=== PATIENT | female | born 1995 | race Caucasian/White ===

== ENCOUNTER 2017-04-26 14:27 | Emergency (ER) | payer OTHER ==
[~2017-04-26] VITALS: Ht 157.5 cm; Wt 77.0 kg
[2017-04-26 14:32] VITALS: TEMP 36.8; Ht 157.5 cm; Wt 77.0 kg
[2017-04-26] MEDS ORDERED: FERR324T PO (14:58)
[2017-04-26] MEDS ORDERED: MULT-506 PO (14:58)
[2017-04-26 15:36] LABS: URINE APPEARANCE CLEAR (CLEAR); URINE BILIRUBIN NEG (NEG); URINE COLOR YELLOW; URINE NITRITE NEG (NEG); URINE SPECIFIC GRAVITY 1.016 (1.000-1.030); UROBILINOGEN NEG (NEG)
[2017-04-26 15:37] LABS: MANUAL MICROSCOPIC REQUIRED? NO; REVIEW REQ? NO
[2017-04-26 15:38] LABS: BASO % 0.1 %; BASO ABS # 0.01 K/uL (0-0.2); COMPLETE YES; EOS % 0.1 %; HEMATOCRIT 37.7 % (37-47); IG% 0.3 %; LYMPH % 12.2 %; LYMPH ABS # 1.36 K/uL (1.2-3.4); MEAN CELL VOLUME 95.9 fL (80-100); MEAN CORPUSCULAR HEMOGLOBIN 34.6 pg (25-34); MEAN CORPUSCULAR HGB CONC 36.1 g/dl (32-36); MEAN PLATELET VOLUME 10.6 fL (7.4-10.4); NEUT % 81.3 %; PLATELET COUNT 210 K/uL (130-400); RED BLOOD COUNT 3.93 M/uL (4.2-5.4); WHITE BLOOD COUNT 11.18 K/uL (4.8-10.8)
--- NOTE | 2017-04-26 15:38 | EMERGENCY ROOM VISIT NOTE ---
History First contact with patient: 14:41 Chief Complaint: ABDOMINAL PAIN Stated Complaint: STOMACH CRAMPS/DISCHARGE Nursing Triage Summary: diffuse abd cramping with brownish vag dc and nausea History of Present Illness The patient is a 21 year old female who presents to the Emergency Room with complaints of lower abdominal/pelvic cramping and vaginal discharge for the past 3 days. She states that she was seen at [facility] yesterday and had a pelvic exam, was told that she was "borderline for BV infection" and was prescribed a vaginal cream for this. Patient states she has not started the cream. She states today that her cramping pain became much more severe, pain is now constant with intermittent sharp worsening pain, diffuse lower abdomen, worse on the right, feels better lying down, worse when she is up walking around, rates the pain as 7/10. She has tried ibuprofen for the pain, but states this does not help. She has associated intermittent chills and nausea with the pain , but denies any vomiting, diarrhea, urinary symptoms, or known fevers. Last menstrual period was one week ago and was normal, she denies concern for , denies concern for sexual transmitted infections. She denies any chest pain, shortness of breath, palpitations, dizziness or passing out, back pain, or rash. Review of Systems A complete 10 point review of systems was reviewed with the patient with pertinent positives and negatives as per history of present illness. All else were negative. Past Medical/Surgical History No significant past medical history Social History Smoking Status: Never Smoker Alcohol Use: none Drug Use: none Occupation Status: [employer] student Current/Historical Medications Scheduled Ferrous Gluconate (Iron Supplement), 324 MG PO DAILY Multivitamin (Multivitamin), 1 TAB PO DAILY Naproxen (Naprosyn), 500 MG PO BID Scheduled PRN Oxycodone/Acetaminophen 5MG/325MG (Percocet 5MG/325MG), 1 TAB PO Q4H PRN for Breakthrough Pain Allergies No known allergies Physical Exam Vital Signs Date Time Temp Pulse Resp B/P (MAP) Pulse Ox O2 Delivery O2 Flow Rate FiO2 04/26/17 19:03 99 16 130/85 99 04/26/17 18:29 99 130/85 99 Room Air 04/26/17 17:13 99 18 134/86 97 Room Air 04/26/17 16:08 103 18 142/78 99 Room Air 04/26/17 16:08 97 Room Air 04/26/17 14:32 36.8 82 16 138/91 98 Room Air Physical Exam CONSTITUTIONAL: No acute distress. Well appearing and well nourished. Alert and oriented X 4 with normal affect. HEENT: Normocephalic, atraumatic. Pupils equal, round and reactive to light, EOMI. TMs normal. Pharynx normal. NECK: Supple, full active range of motion without discomfort. RESPIRATORY: Clear to auscultation bilaterally with no wheezing, crackles, rhonchi or stridor. Equal expansion bilaterally. CARDIOVASCULAR: Regular rate and rhythm with no murmurs, rubs or gallops. Normal peripheral perfusion. No edema. GASTROINTESTINAL: Soft, nontender, nondistended. Bowel sounds present in all quadrants. PELVIC EXAM: VULVA: No ulcers, vesicles or atrophy. VAGINA: Small amount of reddish-brown discharge noted, no foul odor. No blood clots or active bleeding. CERVIX: Closed, pink, nontender, no cervical motion tenderness, no discharge. UTERUS: Normal size, nontender. ADNEXA: Right adnexal tenderness to palpation. Left adnexa no tenderness. A nurse was present as a scientific writer during the examination. MUSCULOSKELETAL: Full range of motion of all joints without discomfort. INTEGUMENTARY: No rash or other significant dermatologic conditions noted. NEUROLOGIC: Cranial nerves II-XII grossly intact. No focal neurologic deficits noted. Medical Decision & Procedures ER Provider Diagnostic Interpretation: PELVIC COMPLETE NON OB CLINICAL HISTORY: pelvic pain, eval ovarian cyst, torsion PAIN COMPARISON STUDY: None FINDINGS: The uterus measured 7.0 cm. The endometrial stripe measured 6 mm. The right ovary measured 4.7 cm with a 5 cm associated cyst. Normal vascular flow. The left ovary measured maximum dimension 2.6 cm. Normal vascular flow. There is no ultrasonographic evidence of ovarian torsion. It should be noted that ovarian torsion can be present with normal Doppler ultrasonographic findings. There was no evidence of pathologic free pelvic fluid. IMPRESSION: 1. 5 cm right ovarian cyst. 2. Otherwise negative pelvic ultrasound. 3. Normal vascular flow to both ovaries Laboratory Results 04/26/17 15:10 Red Blood Count 3.93, Mean Corpuscular Volume 95.9, Mean Corpuscular Hemoglobin 34.6, Mean Corpuscular Hemoglobin Concent 36.1, Mean Platelet Volume 10.6, Neutrophils (%) (Auto) 81.3, Lymphocytes (%) (Auto) 12.2, Monocytes (%) (Auto) 6.0, Eosinophils (%) (Auto) 0.1, Basophils (%) (Auto) 0.1, Neutrophils # (Auto) 9.10, Lymphocytes # (Auto) 1.36, Monocytes # (Auto) 0.67, Eosinophils # (Auto) 0.01, Basophils # (Auto) 0.01 04/26/17 15:10 Test 04/26/17 15:00 04/26/17 15:10 04/26/17 16:40 Urine Color YELLOW Urine Appearance CLEAR (CLEAR) Urine pH 7.0 (4.5-7.5) Urine Specific [place] 1.016 (1.000-1.030) Urine Protein NEG (NEG) Urine Glucose (UA) NEG (NEG) Urine Ketones TRACE (NEG) Urine Occult Blood 2+ (NEG) Urine Nitrite NEG (NEG) Urine Bilirubin NEG (NEG) Urine Urobilinogen NEG (NEG) Urine Leukocyte Esterase MODERATE (NEG) Urine WBC (Auto) 5-10 /hpf (0-5) Urine RBC (Auto) 0-4 /hpf (0-4) Urine Hyaline Casts (Auto) 0 /lpf (0-5) Urine Epithelial Cells (Auto) 10-20 /lpf (0-5) Urine Bacteria (Auto) 1+ (NEG) Urine Test NEG (NEG) White Blood Count 11.18 K/uL (4.8-10.8) Red Blood Count 3.93 M/uL (4.2-5.4) Hemoglobin 13.6 g/dL (12.0-16.0) Hematocrit 37.7 % (37-47) Mean Corpuscular Volume 95.9 fL (80-100) Mean Corpuscular Hemoglobin 34.6 pg (25-34) Mean Corpuscular Hemoglobin Concent 36.1 g/dl (32-36) Platelet Count 210 K/uL (130-400) Mean Platelet Volume 10.6 fL (7.4-10.4) Neutrophils (%) (Auto) 81.3 % Lymphocytes (%) (Auto) 12.2 % Monocytes (%) (Auto) 6.0 % Eosinophils (%) (Auto) 0.1 % Basophils (%) (Auto) 0.1 % Neutrophils # (Auto) 9.10 K/uL (1.4-6.5) Lymphocytes # (Auto) 1.36 K/uL (1.2-3.4) Monocytes # (Auto) 0.67 K/uL (0.11-0.59) Eosinophils # (Auto) 0.01 K/uL (0-0.5) Basophils # (Auto) 0.01 K/uL (0-0.2) RDW Standard Deviation 42.6 fL (36.4-46.3) RDW Coefficient of Variation 12.2 % (11.5-14.5) Immature Granulocyte % (Auto) 0.3 % Immature Granulocyte # (Auto) 0.03 K/uL (0.00-0.02) Anion Gap 8.0 mmol/L (3-11) Est Creatinine Clear Calc Drug Dose 95.8 ml/min Estimated GFR () 106.7 Estimated GFR (Non- 92.0 BUN/Creatinine Ratio 14.4 (10-20) Calcium Level 9.3 mg/dl (8.5-10.1) Total Bilirubin 0.4 mg/dl (0.2-1) Aspartate Amino Transf (AST/SGOT) 22 U/L (15-37) Alanine Aminotransferase (ALT/SGPT) 23 U/L (12-78) Alkaline Phosphatase 70 U/L (45-117) Total Protein 7.8 gm/dl (6.4-8.2) Albumin 4.1 gm/dl (3.4-5.0) Globulin 3.7 gm/dl (2.5-4.0) Albumin/Globulin Ratio 1.1 (0.9-2) Date/Time Source Procedure Growth Status 04/26/17 16:40 Vaginal Drainage Trichomonas Preparation - Final Complete Medications Administered Medications (Trade) Dose Ordered Sig/Jasper Route Start Time Stop Time Status Last Admin Dose Admin Ketorolac Tromethamine (Toradol Inj) 15 mg NOW STAT IV 04/26/17 18:09 04/26/17 18:10 DC 04/26/17 18:29 15 MG Medical Decision CC: Patient presenting with complaint of pelvic pain, vaginal discharge Interpretation of Labs: Mild leukocytosis, no anemia, no significant electrolyte abnormalities, normal renal function, normal liver enzymes. UA is more consistent with contaminant an infection, culture is pending. Differential Diagnosis: Includes, but not limited to bacterial vaginosis, vaginal yeast infection, PID, sexual transmitted infection, ovarian cyst, ovarian torsion, appendicitis, UTI, pyelonephritis, among others. Medication Reconciliation: I attest that I have personally reviewed the patient' s current medication list. Vital signs review: I reviewed the patient's vital signs and interpret them as follows: T: Afebrile; BP: Hypertensive; HR: Within normal limits; RR: Within normal limits; Pulse Ox: Within normal limits on room air. Summary: Patient was evaluated at bedside, history and physical exam performed. Patient is alert and oriented, in no acute distress and nontoxic appearing, resting calmly in the stretcher. Patient is diffusely tender in the lower abdomen, most tender just right of midline. No McBurney's point tenderness, negative Rovsing, and no rebound tenderness or guarding. No CVA tenderness. Orders were placed at bedside for labs, UA and urine , vaginal/ cervical cultures, pelvic ultrasound to evaluate for ovarian torsion. Patient discussed with Dr. Painter, who agrees with my assessment and plan. Labs reviewed as above, no significant abnormalities. Pelvic exam reveals a small amount of reddish-brown discharge, no cervical motion tenderness or significant pain to suspect PID. Patient does have considerable right adnexal tenderness, the uterus and left adnexa are nontender. Ultrasound imaging shows a large 5 cm cyst on the right ovary, normal flow documented to both ovaries. Patient reassessed multiple times throughout ED stay, she reports that her pain is slightly improved. I spoke on the phone with Dr. Johnson, INFORMATION SERVICES ASSISTANT, regarding the patient's right ovarian cyst and concern for intermittent torsion. She states with documented flow on the ultrasound and patient's steady level of pain, there is no indication for surgery at this point. She recommended discharge to home with pain medications and very strict return precautions, and to have her call the office in the morning to schedule a clinic follow-up appointment for possible elective drainage of the cyst. The patient was given IV Toradol for her pain, with good improvement. I discussed all results with the patient and plan for discharge, with plan to follow up with the [facility] office tomorrow. I also discussed return criteria should her symptoms worsen in any way, she verbalized understanding. Patient was discharged home in stable condition and ambulatory Medication Reconcilliation Current Medication List: was personally reviewed by me Blood Pressure Screening Patient's blood pressure: Elevated blood pressure Blood pressure disposition: Elevated BP felt to be situational Consults Time Called: 5:58 PM Consulting Physician: Dr. Johnson (INFORMATION SERVICES ASSISTANT) Returned Call: 6:02 PM Impression Primary Impression: Right ovarian cyst Departure Information Dispostion Home / Self-Care Condition GOOD Prescriptions Oxycodone/Acetaminophen 5MG/325MG (PERCOCET 5MG/325MG) Tab 1 TAB PO Q4H Y for Breakthrough Pain, #15 TAB For Initial Treatment Prov: Nerissa Gonzales CRNP 04/26/17 Naproxen (Naprosyn) 500 Mg Tab 500 MG PO BID for Pain for 10 Days, #20 TAB Prov: Nerissa Gonzales CRNP 04/26/17 Referrals [facility] (PCP) Zoraida Johnson MD Patient Instructions ED Cyst Ovarian, [facility] Additional Instructions You have been treated in the Emergency Department your Abdominal Pain. Laboratory results and imaging studies have ruled out any emergent causes for your abdominal pain which would warrant admission or surgery. Your ultrasound today shows that you have a 5 cm cyst on your right ovary. You have been prescribed Percocet to be used for pain control. This is a narcotic medication. You cannot drive or consume alcohol while on this medicine. This medicine should only be used for severe pain that cannot be controlled with [id number] pain medicines. You have also been prescribed naproxen, one tablet twice a day as needed for pain. You may try applying a heating pad to your abdomen for discomfort. Drink plenty of water and stay well hydrated. You should call the gynecology office tomorrow morning to set up an appointment for follow-up. Please return to the emergency department immediately if your pain becomes suddenly or significantly worse, if you develop fever/chills, severe nausea/ vomiting, severe dizziness or passing out, heavy vaginal bleeding, or any other concerns.
[2017-04-26 15:47] LABS: BUN/CREATININE RATIO 14.4 (10-20); CALCIUM 9.3 mg/dl (8.5-10.1); CREATININE 0.9 mg/dl (0.60-1.20); POTASSIUM 3.5 mmol/L (3.5-5.1)
[2017-04-26 15:50] LABS: ALB/GLOB RATIO 1.1 (0.9-2)
[2017-04-26 16:08] VITALS: O2SAT 97
--- NOTE | 2017-04-26 16:29 | DIAGNOSTIC IMAGING REPORT ---
PELVIC COMPLETE NON OB CLINICAL HISTORY: pelvic pain, eval ovarian cyst, torsion PAIN COMPARISON STUDY: None FINDINGS: The uterus measured 7.0 cm. The endometrial stripe measured 6 mm. The right ovary measured 4.7 cm with a 5 cm associated cyst. Normal vascular flow. The left ovary measured maximum dimension 2.6 cm. Normal vascular flow. There is no ultrasonographic evidence of ovarian torsion. It should be noted that ovarian torsion can be present with normal Doppler ultrasonographic findings. There was no evidence of pathologic free pelvic fluid. IMPRESSION: 1. 5 cm right ovarian cyst. 2. Otherwise negative pelvic ultrasound. 3. Normal vascular flow to both ovaries The above report was generated using voice recognition software. It may contain grammatical, syntax or spelling errors. Electronically signed by: Angel Ch M.D. 04/26/2017 4:28 PM Dictated Date/Time: 04/26/2017 4:26 PM
[2017-04-26] MEDS ORDERED: KETOROLAC TROMETHAMINE 30 MG/ML VIAL IV STA (18:09)
[2017-04-26] MEDS ORDERED: OXYC-57 PO (18:16)
[2017-04-26] MEDS ORDERED: NAPR-1169 PO (18:16)
[2017-04-26 19:03] VITALS: BP 130/85; PULSE 99; O2SAT 99
--- NOTE | 2017-04-28 12:58 | Pharmacy Progress Note ---
ED Pharmacist Culture FollowUp Date of Service: Apr 28, 2017. Called patient regarding E. coli urine culture. Prescription for keflex 500mg QID X 10 days called to [facility] at the patient's request. Case discussed with Dr. Painter, who is the prescribing provider.
[2017-04-29 01:52] LABS: CHLAMYDIA TRACH RNA*** NOT DETECTED (NOT DETECTED); GC (NEIS GONORRHOEAE)RNA** NOT DETECTED (NOT DETECTED)
== END 2017-04-26 19:00 | disposition home or self-care (01) ==
LOC: C.EDB 14:30 → C.EDA 19:00
DX: N83.201 Unspecified ovarian cyst, right side (principal)

== ENCOUNTER 2017-06-10 13:20 | Emergency (ER) | payer OTHER ==
[~2017-06-10] VITALS: Ht 154.9 cm; Wt 76.0 kg
[~2017-06-10 13:20] MED LIST: FERR324T PO; MULT-506 PO; OXYC-57 PO
[2017-06-10 13:23] VITALS: TEMP 36.7; Ht 154.9 cm; Wt 76.0 kg
[2017-06-10 14:07] LABS: PTT PATIENT 26.6 SECONDS (21.0-31.0)
--- NOTE | 2017-06-10 14:47 | DIAGNOSTIC IMAGING REPORT ---
BILATERAL LOWER EXTREMITY VENOUS DOPPLER CLINICAL HISTORY: bilateral lower leg pain/patient on control COMPARISON STUDY: No previous studies for comparison. TECHNIQUE: Sonography of the deep venous system of the lateral lower extremities was performed. Compression and augmentation were evaluated. FINDINGS: The bilateral common femoral, superficial femoral and popliteal veins were compressible. Augmentation was normal. Flow was shown within the deep calf vessels. IMPRESSION: No evidence of deep venous thrombus within the bilateral lower extremities. Electronically signed by: Abe Nelson M.D. 06/10/2017 2:46 PM Dictated Date/Time: 06/10/2017 2:45 PM
--- NOTE | 2017-06-10 15:01 | EMERGENCY ROOM VISIT NOTE ---
History First contact with patient: 13:26 Chief Complaint: LEG PAIN,LEG INJURY Stated Complaint: BILAT CALF PAIN, UTI, DIZZINES History of Present Illness The patient is a 21 year old female who presents to the Emergency Room with multiple complaints. The patient's first complaint is that she was recently treated for a UTI and was treated with amoxicillin. She finished it yesterday but last evening she still has urinary frequency but denies any dysuria or hematuria or urgency. The patient denies any abdominal pain. The patient also states that she recently started control pills 3 days ago. Last evening she started with pain in both her cavities. The patient states that she does not work out and that there is no reason for her to have pain in her calves. She denies any increased walking at school. The patient denies any chest pain or shortness of breath. The patient denies any tobacco use. Review of Systems 10 system review was performed and was negative unless stated otherwise history of present illness. Past Medical/Surgical History Hypertension, ovarian cyst, breast reduction surgery Social History Smoking Status: Never Smoker Alcohol Use: none Drug Use: none Occupation Status: [employer] student Current/Historical Medications Scheduled Multivitamin (Multivitamin), 1 TAB PO DAILY Physical Exam Vital Signs Date Time Temp Pulse Resp B/P (MAP) Pulse Ox O2 Delivery O2 Flow Rate FiO2 06/10/17 13:23 36.7 96 16 136/89 97 Physical Exam GENERAL: 21-year-old female appears in no acute distress. MENTAL Status: Patient is alert and oriented 3. She appears somewhat anxious. NECK: Supple, no lymphadenopathy noted. No carotid bruits noted. LUNGS: Clear auscultation without wheezes rales or rhonchi. CARDIAC: Regular rate and rhythm without murmur. Pulses is full and equal throughout.. ABDOMEN: Positive bowel sounds all 4 quadrants. Soft, nontender to palpation without organomegaly or masses. EXTREMITIES: No cyanosis or edema noted. No erythema . Slight tenderness palpation over both posterior calves. No palpable cords. Negative Homans bilaterally. Medical Decision & Procedures ER Provider Diagnostic Interpretation: BILATERAL LOWER EXTREMITY VENOUS DOPPLER CLINICAL HISTORY: bilateral lower leg pain/patient on control COMPARISON STUDY: No previous studies for comparison. TECHNIQUE: Sonography of the deep venous system of the lateral lower extremities was performed. Compression and augmentation were evaluated. FINDINGS: The bilateral common femoral, superficial femoral and popliteal veins were compressible. Augmentation was normal. Flow was shown within the deep calf vessels. IMPRESSION: No evidence of deep venous thrombus within the bilateral lower extremities. Electronically signed by: Abe Nelson M.D. 06/10/2017 2:46 PM Dictated Date/Time: 06/10/2017 2:45 PM Laboratory Results Test 06/10/17 13:41 06/10/17 13:45 Prothrombin Time 10.1 SECONDS (9.0-12.0) Prothromb Time International Ratio 1.0 (0.9-1.1) Activated Partial Thromboplast Time 26.6 SECONDS (21.0-31.0) Partial Thromboplastin Ratio 1.0 Urine Color YELLOW Urine Appearance CLEAR (CLEAR) Urine pH 6.5 (4.5-7.5) Urine Specific [place] 1.016 (1.000-1.030) Urine Protein NEG (NEG) Urine Glucose (UA) NEG (NEG) Urine Ketones NEG (NEG) Urine Occult Blood 2+ (NEG) Urine Nitrite NEG (NEG) Urine Bilirubin NEG (NEG) Urine Urobilinogen NEG (NEG) Urine Leukocyte Esterase SMALL (NEG) Urine WBC (Auto) 1-5 /hpf (0-5) Urine RBC (Auto) 0-4 /hpf (0-4) Urine Hyaline Casts (Auto) 0 /lpf (0-5) Urine Epithelial Cells (Auto) >30 /lpf (0-5) Urine Bacteria (Auto) NEG (NEG) ED Course The patient was evaluated. The patient's EMR medication list were reviewed. Coags were ordered. Urinalysis was ordered. Urine revealed a trace of leukocytes and some blood. No bacteria was noted. This will be sent for culture. Bilateral venous Dopplers of the lower extremities was ordered interpreted by the radiologist as above without any evidence of DVT. Medical Decision Differential diagnosis include DVT, superficial phlebitis, muscle cramps Differential diagnosis include UTI, pyelonephritis, interstitial cystitis [place] Drug Monitoring Program Search Results: patient reviewed within database Medication Reconcilliation Current Medication List: was personally reviewed by me Blood Pressure Screening Patient's blood pressure: Normal blood pressure Impression Primary Impression: Urinary frequency Additional Impression: Bilateral leg pain Departure Information Dispostion Home / Self-Care Condition GOOD Referrals No Doctor, Assigned (PCP) Forms HOME CARE DOCUMENTATION FORM, IMPORTANT VISIT INFORMATION Patient Instructions [facility] Additional Instructions Push fluids. Take Tylenol and/or ibuprofen as needed for pain. Call in 36 hours for urine culture results. If symptoms persist or worsen, follow-up with [facility]. Problem Qualifiers
[2017-06-10 15:08] VITALS: BP 128/80; PULSE 85; O2SAT 98
== END 2017-06-10 15:09 | disposition home or self-care (01) ==
LOC: C.EDB 13:24 → C.EDD 15:09
DX: R35.0 Frequency of micturition (principal); M79.606 Pain in leg, unspecified; I10 Essential (primary) hypertension; Z87.440 Personal history of urinary (tract) infections

== ENCOUNTER 2023-11-29 05:36 | Inpatient (IN) ==
--- NOTE | 2023-11-18 14:33 | Anesthesiology Consultation ---
Date of Service November 18, 2023 Assessment & Plan (1) Encounter for pre-operative examination: - Per machine tool dresser on 11/18/23: No known infectious disease contacts, current infectious disease symptoms in past 10 days or COVID positive test result in the past 30 days. Chart Review Chart Review: entry table operator initiated History Surgery Operation Date: 11/29/23 07:30 Proposed Procedures p Section in LD (Delivery Baby through Abdominal Incision) - Domi Perez MD, FACOG Height/Weight Height: 5 ft 2 in Weight: 90.265 kg Allergies Allergy/AdvReac Type Severity Reaction Status Date / Time No Known Allergies Allergy Verified 11/18/23 14:04 Medications Home Medications Medication Instructions Recorded Confirmed Last Taken docosahexaenoic acid 200 mg 1 mg PO DAILY 03/02/23 11/18/23 10/11/23 capsule ( DHA) aspirin 81 mg chewable tablet 81 mg PO DAILY 06/30/23 11/18/23 10/11/23 ferrous sulfate 27 mg iron tablet 27 mg PO DAILY 11/18/23 11/18/23 Unknown Past Medical History Medical History (Updated 11/18/23 @ 14:32 by Katharine Dai PA-C) Anemia Bicornuate uterus History of chicken pox Hx of pre-eclampsia in prior , currently with 1st > none this time IUGR (intrauterine growth restriction) affecting care of mother with first 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 Family History Family History Aunt Breast cancer Grandmother (Paternal) Myocardial infarction Grandfather (Paternal) Prostate cancer Denies family history of Ovarian cancer Colorectal cancer Past Surgical History Surgical History S/P bilateral breast reduction S/P section 07/24/21- 30 weeks in [facility] [place] S/P wisdom tooth extraction Social History Smoking Status: Never smoker Do You Dip or Chew Tobacco: No Hx Alcohol Use: Yes alcohol intake frequency: holidays/special occasions only Alcohol Intake Frequency Comment: none during Hx Substance Use: No substance use type: does not use Lab Results Anesthesia Preop Results Results Anesthesia Widget: WBC 9.52 K/ul (4.8-10.8) 10/12/23 Hgb 10.5 g/dl (12.0-16.0) L 10/12/23 Hct 29.3 % (37.0-47.0) L 10/12/23 Plt 162 K/uL (130-400) 10/12/23 Na 137 mmol/L (136-145) 10/12/23 K 3.9 mmol/L (3.5-5.1) 10/12/23 Cl 106 mmol/L (98-107) 10/12/23 CO2 23 mmol/L (21-32) 10/12/23 BUN 8 mg/dl (6-23) 10/12/23 Creat 0.60 mg/dl (0.6-1.2) 10/12/23 Glucose Level 84 mg/dl (70-99(Fasting)) 10/12/23 Urine Color Yellow 09/19/23 Urine Appearance Cloudy (Clear) A 09/19/23 Urine pH 6.5 (4.5-7.5) 09/19/23 Urine Specific [place] 1.020 (1.000-1.030) 09/19/23 Urine Protein Trace (Negative) H 09/19/23 Urine Glucose (UA) Negative (Negative) 09/19/23 Urine Ketones Negative (Negative) 09/19/23 Urine Blood Negative (Negative) 09/19/23 Urine Nitrite Negative (Negative) 09/19/23 Urine Bilirubin Negative (Negative) 09/19/23 Urine Urobilinogen Negative (Negative) 09/19/23 Urine Leukocyte Esterase Trace (Negative) H 09/19/23 Urine WBC (Auto) 11-20 /hpf (0-5) H 09/19/23 Urine RBC (Auto) 0-2 /hpf (0-2) 09/19/23 Urine Hyaline Casts (Auto) 3-5 /lpf (0-2) H 09/19/23 Urine Epithelial Cells (Auto) 6-10 /hpf (0-2) H 09/19/23 Urine Bacteria (Auto) 2+ (None Seen) H 09/19/23
--- NOTE | 2023-11-28 17:50 | History & Physical Report ---
Date of Service November 28, 2023 Assessment & Plan (1) Previous delivery affecting , antepartum: Plan: IUP at 38 weeks with IUGR fetus and breech presentation with uterus didelphys for repeat LTCS the procedure and it's risks were reviewed with patient and her and all questions answered to their satisfaction. History of Present Illness Primary Care Provider: Trey Starr DO Patient is a 28 yo EDC 12/11/23 who presents at 38 2/7 weeks for repeat LTCS because of breech presentation and IUGR fetus. testing has been reassuring. Prior LTCS was done at 30 weeks because of Pre-eclampsia with severe features and breech presentation. 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 GBS- negative Allergies Allergy/AdvReac Type Severity Reaction Status Date / Time No Known Allergies Allergy Verified 11/28/23 10:36 Home Medications Medication Instructions Recorded Confirmed Type docosahexaenoic acid 200 mg 1 mg PO DAILY 03/02/23 11/28/23 History capsule ( DHA) aspirin 81 mg chewable tablet 81 mg PO DAILY 06/30/23 11/28/23 History ferrous sulfate 27 mg iron tablet 27 mg PO DAILY 11/18/23 11/28/23 History Patient History Medical History Anemia Bicornuate uterus History of chicken pox Hx of pre-eclampsia in prior , currently with 1st > none this time IUGR (intrauterine growth restriction) affecting care of mother with first 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 Surgical History S/P bilateral breast reduction S/P section 07/24/21- 30 weeks in [facility] [place] S/P wisdom tooth extraction Family History Aunt Breast cancer Grandmother (Paternal) Myocardial infarction Grandfather (Paternal) Prostate cancer Denies family history of Ovarian cancer Colorectal cancer Social History Smoking Status: Never smoker Second Hand Exposure: No; Do You Dip or Chew Tobacco: No; Hx Alcohol Use: Yes Hx Substance Use: No Preferred Language: Senegalese Communication Ability: Effective Residential Fee Appraiser Required: No Beliefs That Will Affect Care: None marital status: marital status details: [place] (28) [phone] Current Living Situation: Spouse Current Living Situation Comment: house with , son and dog current occupational status: unemployed current occupation: homemaker Feels Safe at Home: Yes Assistive Devices: None Review of Systems All systems reviewed & are unremarkable except as noted in HPI & below Physical Exam Constitutional: WD/WN, vitals as above Respiratory: normal respiratory effort, lungs clear to auscultation Cardiovascular: RRR, no murmur, no edema Psychiatric: A+Ox3, euthymic affect Genitourinary: OB Exam Abdomen: + fundal height (term) and + breech OB Exam Monitor Tracing: + external FHT monitor used, + external uterine monitor used, + category I and + normal FHT variability Coding Level of Care Code None Diagnoses Previous delivery affecting , antepartum O34.976
[2023-11-29] MEDS ORDERED: SODIUM CHLORIDE 0.9% 250 ML IV PRN (05:39)
[2023-11-29] MEDS: LACTATED RINGER'S 1,000 ML IV SCH (06:04)
[2023-11-29 06:27] LABS: Basophils # (auto) 0.03 K/uL (0.00-0.20); Basophils % (auto) 0.3 %; Eosinophils % (auto) 1.2 %; Hematocrit (blood only) 34.8 % (37.0-47.0); Hemoglobin 12.6 g/dl (12.0-16.0); Immature Granulocytes # (auto) 0.04 K/uL (0.01-0.20); Immature Granulocytes % (auto) 0.5 %; Lymphocytes # (auto) 2.11 K/uL (1.20-3.40); Lymphocytes % (auto) 24.4 %; Mean Corpuscular Hgb Conc 36.2 g/dL (32.0-36.0); Mean Corpuscular Volume 96.7 fL (80.0-100.0); Mean Platelet Volume 10.8 fL (9.4-12.4); Monocytes % (auto) 8.1 %; Neutrophils # (auto) 5.67 K/uL (1.40-6.50); Neutrophils % (auto) 65.5 %; Platelet Count 189 K/uL (130-400); RDW Coefficient of Variation 12.6 % (11.5-14.5); RDW Standard Deviation 44.4 fL (36.4-46.3); White Blood Count 8.65 K/ul (4.8-10.8)
[2023-11-29] MEDS ORDERED: DEXAMETHASONE SOD INJ 4 MG/ML VIAL ONE (06:57)
[2023-11-29] MEDS ORDERED: MoRPHine SULFATE PF 1 MG/ML 10 ML AMP/VIAL ONE (06:57)
[2023-11-29] MEDS ORDERED: OXYTOCIN 10 UNITS/ML VIAL ONE (06:57)
[2023-11-29] MEDS ORDERED: KETOROLAC 30 MG/ML VIAL ONE (06:57)
[2023-11-29] MEDS ORDERED: ONDANSETRON INJ 2 MG/ML 2 ML VIAL ONE (06:57)
[2023-11-29] MEDS ORDERED: PHENYLEPHRINE 100MCG/ML 10ML SYR IV ONE (06:57)
[2023-11-29] MEDS ORDERED: fentaNYL citrate PF 100 MCG/2 ML VIAL ONE (06:57)
--- NOTE | 2023-11-29 07:10 | History & Physical Bridge Note ---
Date of Service November 29, 2023 History & Physical Bridge Note I have examined the patient, reviewed the History & Physical and in the interval since the performance of the History & Physical I have noted the following changes of clinical significance: no changes noted
[2023-11-29] MEDS: CITRIC ACID/SODIUM CITRATE 15 ML UDC PO SCH (07:38)
[2023-11-29] MEDS: ceFAZolin 2000MG 2,000 MG/15 ML SYR IV SCH (07:40)
[2023-11-29] MEDS ORDERED: HYDROCORTISONE ACETATE 25 MG SUPP PR PRN (09:10)
[2023-11-29] MEDS ORDERED: diphenhydrAMINE 50 MG/ML VIAL IV PRN ×2 (09:10→09:20)
[2023-11-29] MEDS ORDERED: ONDANSETRON INJ 2 MG/ML 2 ML VIAL IV PRN ×2 (09:10→09:20)
[2023-11-29] MEDS ORDERED: BENZOCAINE 20% SPRY 85 APPLN/85 GM CAN EXT PRN (09:10)
[2023-11-29] MEDS ORDERED: diphenhydrAMINE Capsule 25 MG CAP PO PRN (09:10)
[2023-11-29] MEDS ORDERED: MEPERIDINE HCL 50 MG/ML CARP IV PRN (09:10)
[2023-11-29] MEDS ORDERED: PROMETHAZINE HCL 25 MG in SODIUM CHLORIDE 0.9% 50 ML IV PRN (09:10)
[2023-11-29] MEDS ORDERED: MAGNESIUM HYDROXIDE SUSP 30 ML UDC PO PRN (09:10)
[2023-11-29] MEDS ORDERED: KETOROLAC 30 MG/ML VIAL IV PRN (09:10)
[2023-11-29] MEDS ORDERED: ACETAMINOPHEN 325 MG TAB PO PRN (09:10)
[2023-11-29] MEDS ORDERED: SENNA 8.6 MG TAB PO PRN (09:10)
[2023-11-29] MEDS ORDERED: LACTATED RINGER'S 1,000 ML IV SCH (09:15)
[2023-11-29] MEDS ORDERED: NALBUPHINE HCL 5 MG in SYRINGE 0 ML IV PRN (09:20)
[2023-11-29] MEDS ORDERED: ePHEDrine sulfate 50 MG/ML AMP IV PRN (09:20)
[2023-11-29] MEDS ORDERED: NALOXONE HCL 0.08 MG in SYRINGE 1.8 ML IV PRN (09:20)
[2023-11-29] MEDS ORDERED: HYDROmorphone INJ 0.5 MG/0.5 ML SYR IV PRN (09:20)
[2023-11-29] MEDS ORDERED: NALOXONE HCL 0.4 MG/1 ML VIAL/CARP IV PRN (09:20)
[2023-11-29] MEDS ORDERED: NALOXONE HCL 1 MG in SODIUM CHLORIDE 0.9% 1,000 ML IV PRN (09:20)
[2023-11-29] MEDS ORDERED: LACTATED RINGER'S 500 ML IV PRN (09:20)
[2023-11-29] MEDS ORDERED: PROMETHAZINE HCL 6.25 MG in SODIUM CHLORIDE 0.9% 50 ML IV PRN (09:20)
--- NOTE | 2023-11-29 09:21 | Anesthesiology Progress Note ---
Date of Service November 29, 2023 Anesthesia Post Procedure Vital Signs Vital Signs: Temp Pulse Resp BP Pulse Ox 11/29/23 09:16 65 100 11/29/23 09:15 73 128/76 11/29/23 07:00 36.8 C 65 139/94 11/29/23 06:09 70 137/90 11/29/23 05:54 36.7 C 18 Transfer of Care Handoff Completed per policy Notes Mental Status: alert / awake / arousable and participated in evaluation Patient Amnestic to Procedure: No Nausea / Vomiting: adequately controlled Pain: adequately controlled Airway Patency, RR, SpO2: stable & adequate BP & HR: stable & adequate Hydration State: stable & adequate Neuraxial Anesthesia: was administered and sensory block is resolving Anesthetic Complications: no major complications apparent and Pt Satisfied with anesthetic care
--- NOTE | 2023-11-29 09:22 | Post Operative Brief Note ---
Immediate Post Op Note Date of Surgery November 29, 2023 Pre & Post Diagnosis Operation Date: 11/29/23 07:30 Pre-Op Diagnosis: History of Section Post-Op Diagnosis: History of Section I identified the patient and participated in the time-out.: Yes Procedure Operation Date: 11/29/23 07:30 Actual Procedures p Section(Bilateral) - Domi Perez MD, FACOG Surgeon Domi Perez MD, FACOG Social Worker Masters Zoraida Johnson Quantitative Blood Loss (QBL) 587 Findings Consistent with Post-Op Diagnosis uterus didelphys with in gravid right uterus. bilateral ovaries and tubes are normal. left uterus is normal size Specimens Specimen Description: A. Cord Blood B. Placenta - Hold Anesthesia Type Spinal Complications none Disposition Accompanied Patient To Recovery: Yes
[2023-11-29] MEDS ORDERED: NO NARCOTICS OR SEDATIVES SCH (09:30)
[2023-11-29] MEDS ORDERED: DC INTRASPINAL MORPHINE SCH (09:30)
--- NOTE | 2023-11-29 09:54 | Operative Report ---
Post Operative Report Pre & Post Diagnosis Operation Date: 11/29/23 07:30 Pre-Op Diagnosis: History of Section Post-Op Diagnosis: History of Section I identified the patient and participated in the time-out.: Yes Procedure Operation Date: 11/29/23 07:30 Actual Procedures p Section- Delivery of live male child at 0828. (Bilateral) - Domi Perez MD, FACOG Surgeon Domi Perez MD, FACOG Bearing Maker Zoraida Johnson Quantitative Blood Loss (QBL) 587 Findings Consistent with Post-Op Diagnosis The was in the right uterus. That uterus was gravid and consistent with a full-term in size the right ovary and fallopian tube were also grossly normal. The left uterus was of normal size with a normal left ovary and tube. Specimens Placenta to hold Drains Garcia catheter to straight drainage clear urine at the end of the case Anesthesia Type Spinal Complications none Disposition Accompanied Patient To Recovery: Yes Indications Prior section at 30 weeks for HELLP syndrome and breech presentation 38 weeks gestation with IUGR- current Breech presentation Uterus didelphys Description of Procedure The patient received adequate subarachnoid block she was prepped and draped in usual sterile fashion. A low transverse skin incision was made through her prior car scar and carried to the fascia with the same scalpel. The fascial incision was then extended with Han scissors and the underlying rectus muscle bluntly sharply dissected off of the overlying fascia. The peritoneum was entered bluntly and the rectus muscles were then taken down on the midline with sharp and blunt dissection. The bladder was then taken down off the anterior surface of the right uterus. It was placed behind the bladder blade. A low transverse incision was made on the uterus and extended in a cephalad and caudad stretching process. Membranes were ruptured for clear fluid. It was delivered from the breech presentation with moderate fundal pressure. After the buttocks were delivered the rest of the infant delivered easily. Cord was clamped and cut and the male infant was handed off to Dr. Perez and crew from the nursery. He was then vigorous and crying and moving all 4 limbs. The placenta was then extracted manually. Uterine cavity was then explored and found to be free of any placental tissue or membranes. The uterus was then closed in 2 layers with a running locking imbricating fashion with 0 Monocryl. Some bleeding along the lower edge of the uterine incision was secured with the Bovie. This point hemostasis was excellent, and the uterus was placed back inside the abdominal cavity. Incidentally the left uterus was identified with a normal ovary and tube. The uterus was normal size. The uterine incision was examined once more and continue to have excellent hemostasis. The gutters were explored and found be free of any clots or fluid. The rectus muscle were then brought together on the midline with individual stitches of 0 Monocryl. The fascia was closed in a running fashion with 0 Vicryl. After irrigating the subcutaneous layer, the skin edges were reapproximated in a subcuticular fashion with 4-0 Vicryl. Patient tolerated the procedure well was stable upon arrival he in labor and delivery. I attest to the content of the Intraoperative Record and any orders documented therein. Any exceptions are noted below. OB Procedure Charges 39309
[2023-11-29] MEDS: OXYTOCIN 20 UNITS/LR 1,002 ML IV SCH (10:11)
[2023-11-29] MEDS: SIMETHICONE 80 MG CHEW PO SCH (13:38)
[2023-11-29] MEDS: SODIUM CHLORIDE 0.9% 1,000 ML IV SCH (15:06)
[2023-11-29] MEDS: MoRPHine SULFATE PF 1 MG/ML 10 ML AMP/VIAL INT SPINAL ONE (15:06)
[2023-11-29] MEDS: DIPHTHER/TETAN/PERTUS Vaccine (Tdap, Adol/Adult) 0.5mL IM ONE (15:09)
[2023-11-29] MEDS: DOCUSATE SODIUM 100 MG CAP PO SCH (20:50)
[2023-11-30] MEDS: KETOROLAC 30 MG/ML VIAL IV PRN (00:15)
[2023-11-30 06:37] LABS: Basophils # (auto) 0.01 K/uL (0.00-0.20); Basophils % (auto) 0.1 %; Eosinophils # (auto) 0.01 K/uL (0.00-0.50); Eosinophils % (auto) 0.1 %; Hematocrit (blood only) 24.5 % (37.0-47.0); Hemoglobin 8.9 g/dl (12.0-16.0); Immature Granulocytes # (auto) 0.05 K/uL (0.01-0.20); Immature Granulocytes % (auto) 0.4 %; Lymphocytes % (auto) 12.9 %; Mean Corpuscular Hgb Conc 36.3 g/dL (32.0-36.0); Mean Corpuscular Volume 96.5 fL (80.0-100.0); Mean Platelet Volume 10.5 fL (9.4-12.4); Monocytes # (auto) 0.72 K/uL (0.11-0.59); Monocytes % (auto) 6.2 %; Neutrophils # (auto) 9.36 K/uL (1.40-6.50); Neutrophils % (auto) 80.3 %; Platelet Count 125 K/uL (130-400); RDW Coefficient of Variation 12.7 % (11.5-14.5); RDW Standard Deviation 44.2 fL (36.4-46.3); Red Blood Count 2.54 M/uL (4.20-5.40); White Blood Count 11.65 K/ul (4.8-10.8)
--- NOTE | 2023-11-30 07:31 | Obstetrical Progress Note ---
Date of Service November 30, 2023 Assessment & Plan (1) Encounter for care and examination after delivery: Doing well day 1 Blood pressures have been in the normal range but we will continue to monitor as she has had a history of HELLP syndrome with her prior . Continue current postop plan. Subjective Voiding: no voiding problems Passing Gas:: Yes Diet Tolerance:: regular diet Lochia:: Small Feeding Type:: breast feeding pain well controlled- has been up to void several times working on issues Review of Systems All systems reviewed & are unremarkable except as noted in HPI & below Physical Exam Constitutional WD/WN, vitals as above Gastrointestinal (Abdomen) Inspection/Auscultation: + abdominal surgical incision (incision dry and intact) Psychiatric A+Ox3, euthymic affect Genitourinary OB Exam Abdomen: + fundal height Fundus: + firm and + relation to umbilicus (at U to the right) Results & Data Vital Signs (Past 12 Hours) Vital Signs Temp Pulse Resp BP Pulse Ox O2 Del Method 11/30/23 03:20 18 99 11/30/23 03:20 98.2 F 85 18 124/72 99 Room Air 11/30/23 02:07 18 98 11/30/23 01:07 18 96 11/30/23 00:12 18 98 11/29/23 23:55 97.7 F 73 18 123/73 99 Room Air 11/29/23 23:23 18 99 11/29/23 22:20 18 99 11/29/23 21:32 18 99 11/29/23 20:20 18 99 11/29/23 20:20 97.7 F 70 18 129/82 99 Room Air
[2023-11-30] MEDS: oxyCODONE/ACETAMINOPHEN 5mg/325mg TAB PO PRN (07:45)
[2023-11-30] MEDS: FERROUS SULFATE 325 MG TAB PO SCH (07:47)
[2023-11-30] MEDS: IBUPROFEN 600 MG TAB PO PRN (07:47)
[2023-11-30] MEDS: PRENATAL VITAMIN 1 TAB PO SCH (07:49)
[2023-11-30] MEDS: bisacodyL 5 MG TABEC PO SCH (20:14)
--- NOTE | 2023-12-01 07:10 | Obstetrical Progress Note ---
Date of Service December 01, 2023 Assessment & Plan (1) Encounter for care and examination after delivery: Plan Patient doing well. Plan d/c today. Instructions reviewed. Day #:: 2 Subjective Ambulation: ambulating normally Voiding: no voiding problems Passing Gas:: Yes Diet Tolerance:: regular diet Lochia:: Small Feeding Type:: bottle feeding Physical Exam Constitutional WD/WN, vitals as above Cardiovascular Extremities: no calf tenderness and no edema Gastrointestinal (Abdomen) soft, gravid, nt inc--c/d/i ff/nt 1 below u Results & Data Vital Signs (Past 12 Hours) Vital Signs Temp Pulse Resp BP Pulse Ox O2 Del Method 11/30/23 23:28 134/89 11/30/23 23:18 36.6 C 74 18 98 Room Air
[2023-12-01 07:33] LABS: Basophils # (auto) 0.04 K/uL (0.00-0.20); Basophils % (auto) 0.4 %; Eosinophils # (auto) 0.13 K/uL (0.00-0.50); Eosinophils % (auto) 1.2 %; Hematocrit (blood only) 25.8 % (37.0-47.0); Hemoglobin 9.1 g/dl (12.0-16.0); Immature Granulocytes # (auto) 0.08 K/uL (0.01-0.20); Immature Granulocytes % (auto) 0.7 %; Lymphocytes # (auto) 1.99 K/uL (1.20-3.40); Lymphocytes % (auto) 17.8 %; Mean Corpuscular Hemoglobin 34.9 pg (25.0-34.0); Mean Corpuscular Hgb Conc 35.3 g/dL (32.0-36.0); Mean Corpuscular Volume 98.9 fL (80.0-100.0); Mean Platelet Volume 10.4 fL (9.4-12.4); Monocytes # (auto) 0.68 K/uL (0.11-0.59); Monocytes % (auto) 6.1 %; Neutrophils # (auto) 8.28 K/uL (1.40-6.50); Neutrophils % (auto) 73.8 %; Platelet Count 143 K/uL (130-400); RDW Coefficient of Variation 13.2 % (11.5-14.5); RDW Standard Deviation 47.4 fL (36.4-46.3); Red Blood Count 2.61 M/uL (4.20-5.40)
--- NOTE | 2023-12-01 08:23 | Communication Note ---
Date of Service: December 01, 2023 Nursing notifying me of slilghltly elevated blood pressures of 150/100. Patient asx. cbc this am is wnl. Patient notes "this is white coat syndrome". Plan to monitor through lunch and see what her pressures tdo.
[2023-12-01] MEDS ORDERED: bisacodyL 10 MG SUPP PR PRN (09:10)
--- NOTE | 2023-12-02 17:09 | Discharge Summary ---
Date of Service December 02, 2023 Admission HPI Per Admitting Provider Patient is a 28 yo EDC 12/11/23 who presents at 38 2/7 weeks for repeat LTCS because of breech presentation and IUGR fetus. testing has been reassuring. Prior LTCS was done at 30 weeks because of Pre-eclampsia with severe features and breech presentation. 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 GBS- negative Admission Exam (Per Admitting) Constitutional WD/WN, vitals as above Respiratory normal respiratory effort, lungs clear to auscultation Cardiovascular RRR, no murmur, no edema Gastrointestinal (Abdomen) Inspection/Auscultation: + abdominal surgical incision (incision dry and intact) Psychiatric A+Ox3, euthymic affect Genitourinary OB Exam Abdomen: + fundal height and + breech OB Exam Monitor Tracing: + external FHT monitor used, + external uterine monitor used, + category I and + normal FHT variability Discharge Data Consultations 11/29/23 05:35 Consult Anesthesiology Stat Procedures Performed Operation Date: 11/29/23 07:30 Actual Procedures p Section- Delivery of live male child at 0828. (Bilateral) - Domi Perez MD, [facility] Course (1) Encounter for care and examination after delivery: Plan Patient doing well. Plan d/c today. Instructions reviewed. Discharge Plan Discharge Items Patient Disposition: Home - Self-Care Reason For Visit: History of Section Discharge Diagnosis: s/p repeat C/S Activity: Per Instructions section Non-emergency contact: Nitrating Acid Mixer Call non-emergency contact if: your pain is concerning for you, your temperature is above 101, your wound has increased redness, your wound has increased drainage and your wound pain has increased Follow-up/Referrals: Trey Starr DO [Primary Care Provider] - Diet: Regular Addtl Attending Provider Instructions: ACTIVITY RECOMMENDATIONS: * Gradual return to full activity over the next 2-3 weeks. * No lifting - nothing heavier than baby over the next 2-3 weeks. * Do not engage in vigorous exercise, sexual activity or sports until cleared by your physician. * Do not drive or operate any motorized equipment until cleared by your physician. * You may shower/bathe daily. MEDICATIONS: For discomfort or pain, you may use Acetaminophen (Tylenol), Ibuprofen (Advil), or Naproxen (Aleve) following the package directions. For constipation you may use Colace following the package directions. BREAST CARE: If you are not breast feeding: * Wear a supportive bra 24 hours a day for one to two weeks. * Avoid stimulating your breasts and nipples as much as possible during the first few weeks after delivery. * When taking a shower, have the warm water hit your back, not breasts. * When your breasts feel full, apply ice packs. Usually three to four times a day helps ease the discomfort. * Take a mild pain medication (Tylenol / Motrin) when you are uncomfortable. If breast feeding: * Use breast milk to lubricate nipples. Lansinoh cream may be used for sore nipples. You do not need to remove cream prior to breast feeding. If using a different brand of cream, check the label for directions regarding removal of cream prior to nursing. * Wear a supportive bra. * If having problems with breasts or breast feeding, call a residential solar sales consultant or your health care provider. SPECIAL CARE INSTRUCTIONS: When you are discharged from the hospital, it is important for you to follow the instructions listed below: * During the first week at home, you should be able to care for yourself and your baby. In addition, the usual light household activities are encouraged. * Limit your activities to the way you feel. Do not try to clean the house or move furniture. Be sensible. * If you actively engage in sports and have done so up until the time of your delivery, you may resume these activities as soon as you feel able. This may take up to one month or even longer. Use good judgment. * Continue to take your vitamins for at least six weeks after the of your baby. * Your diet need not be limited unless you were on a special diet before your delivery. Breast-feeding mothers need around 2500 calories per day and at least 64-80 ounces of fluid per day (8 to 10 glasses). * You should eat foods from the four major food groups. Crash diets or fad diets are to be avoided. Eating lean meats, fresh fruits and vegetables, low-fat dairy products, high fiber foods and a regular exercise program, will help you get back to your pre- weight without putting your health at risk. * Constipation is sometimes a problem after delivery. Take a mild laxative as needed. If breast feeding, Milk of Magnesia is acceptable to use. You may use a suppository or Fleets enema. * A daily shower or tub bath is suggested. Wash incision daily with warm soapy water and pat dry. It doesn't need to be covered unless drainage is present. * A bloody vaginal discharge will usually continue until around four weeks . A small amount of bleeding may continue for as long as six weeks. Vaginal discharge changes from the bright red bleeding after delivery to pink then brownish and finally yellowish-pink before becoming white and disappearing. * Bleeding may increase with activity. Your first period may come in 4-8 weeks. If you are breast feeding, your period may be delayed even longer. * [place] (sex) can begin whenever both you and your partner feel c omfortable and do not have any form of genital infection. It is recommended that you wait at least six weeks for internal and external healing to occur. If you have questions, please talk to your health care practitioner. A condom should be used to prevent infection and . * Foreplay, gentle intercourse and lubrication is very important the first several times to prevent pain. A water-based lubricant such as K-Y jelly or Astroglide may be used. * If you have RH negative blood and your baby is RH positive, you will receive RHOGAM by injection prior to discharge. The nurse will give you a card to keep with you that has the date and place that you received RHOGAM after delivery. * During your care, you had a Rubella screen done to check for the presence of rubella antibodies in your blood. If your test was negative, you will receive a Rubella vaccine prior to discharge. This vaccine may cause a fever, soreness at the injection site and flu-like symptoms. If these symptoms persist, notify your health care practitioner. is not advised for one month after a Rubella vaccine. * Verbalizes understanding of car seat law as reviewed with patient nursing. * Car Seat hand-out given and reviewed with patient by nursing. * Shaken baby information reviewed with patient by nursing. Call you doctor if: * Heavy bleeding (saturating several pads an hour) or passing clots the size of your fist. * A fever >101 degrees F (38.3 degrees C) on two occasions four hours apart and /or chills. * Unusual pain in the pelvic or vaginal areas. * Call the doctor for any increased redness, drainage or swelling around the incision and any pain unrelieved by prescribed pain medication. * "Baby Blues" lasting longer than two weeks. If you have any questions or concerns, call your health care practitioner at . FOLLOW UP VISIT: * Please call the office at to schedule a 6 week examination. It is important you keep this appointment. It is important for you to make arrangements for either yearly or twice yearly check-ups thereafter. Pending Studies at Discharge: No Stand-Alone Forms: [facility], Smoking Cessation Medications and DC Order Prescriptions: New oxycodone-acetaminophen [Percocet] 5-325 mg tablet 1 tab PO Q6H PRN (Reason: pain) Qty: 20 0RF Continued DHA 200 mg capsule 1 mg PO DAILY ferrous sulfate 27 mg iron Tablet 27 mg PO DAILY Discontinued aspirin 81 mg tablet,chewable 81 mg PO DAILY Discharge Orders: Discharge Order (Routine); Ordered 12/01/23 Ordered By: Mary Rasmussen/Other Patient Handouts: Understanding Blues, Depression, After Delivery [place] Concerns, Preventing Deep Vein Thrombosis, Section Dc, Parent Expectations, Feeling Healthy, Staying Fit Admission Data Admit Date/Time: 11/29/23 05:36 Attending Provider: Domi Perez Admit Provider: Domi Perez Primary Care Provider: Trey Starr Other Providers: Bola Dhaliwal Other Interventions: Discharge Summary Assessment (RN) Last Done: 12/01/23 11:05 Coding Level of Care Code 46192 IN/OBS DISCH 30 MIN/LESS Diagnoses Encounter for care and examination after delivery Z39.2
== END 2023-12-01 13:40 | disposition home or self-care (01) | DRG 788 ==
LOC: 4S1 05:36 → 4E2 12:24 → EDSTATUS 12-09 07:30
DX: O34.03 Maternal care for unspecified congenital malformation of uterus, third trimester; Z79.82 Long term (current) use of aspirin; O32.1XX0 Maternal care for breech presentation, not applicable or unspecified; O36.5930 Maternal care for other known or suspected poor fetal growth, third trimester, not applicable or unspecified; Z79.899 Other long term (current) drug therapy; Z37.0 Single live birth; O34.211 Maternal care for low transverse scar from previous cesarean delivery